=== PATIENT | female | born 1975 | race Caucasian/White ===

== ENCOUNTER 2016-04-25 13:11 | Observation (INO) | payer SELFPAY ==
[2016-04-25 14:04] VITALS: BP 130/79; PULSE 109
[2016-04-25 15:09] LABS: COMPLETE URINE MICROSCOPIC? YES; Collection Type VOID
[2016-04-25 15:33] LABS: Bacteria FEW /HPF (NEGATIVE)
[2016-04-25 15:34] LABS: Epithelial Cells PACKED /HPF (FEW)
--- NOTE | 2016-04-25 22:08 | XRAY ---
Indication: Not feeling well. Two-dimensional lobe. Ultrasound performed. Comparison: January 27, 2016. Again there is a single viable intrauterine currently in cephalic presentation. Normal four-chamber heart with heart rate 151 bpm. 2 vessel umbilical cord with normal cord insertion. Visualized head, spine, stomach, kidneys, and bladder appear unremarkable. Placenta is posterior without abruption/previa. Cervical length measures 3.1 cm. BPD measures 6.67 cm corresponding to 26 weeks 6 days. HC measures 24.48 cm corresponding to 26 weeks 4 days. AC measures 21.46 cm corresponding to 26 weeks 0 days. FL measures 4.95 cm corresponding to 26 weeks 5 days. LALITO is 13.6 cm. Impression: Again single viable intrauterine with mean gestational age 26 weeks 4 days. Normal progression in . Incidental 2 vessel umbilical cord. Comment: Preliminary report was given.
== END 2016-04-25 16:50 | disposition home or self-care (01) ==
LOC: OB 13:11
PROVIDERS: ADMIT Family Medicine; ATTEND Family Medicine
DX: Z34.82 Encounter for supervision of other normal pregnancy, second trimester (principal)
CPT/HCPCS: 76805; 80307; 81000; G0378

== ENCOUNTER 2016-08-05 15:41 | Observation (INO) | payer MEDICAID ==
[2016-08-05] MEDS ORDERED: Sodium Chloride 0.9% 1000 ML 1,000 ML IV STA (16:31)
[2016-08-05] MEDS ORDERED: Zosyn INJ 4.5 GM in D5w 100ML Mini Bag 100 ML 100 ML IV ONE (16:33)
--- NOTE | 2016-08-05 16:36 | ERPHSYRPT ---
- History of Present Illness Time Seen by Provider: 08/05/16 16:00 Source: patient Exam Limitations: clinical condition Patient Subjective Stated Complaint: left breast tenderness, h/a, fever for 24 hours. is two weeks post c/s. Triage Nursing Assessment: ambulated to room per self. skin w/d, color normal, resp easy. denies any redness to breast but is tender to touch. denies any redness or tenderness to c/s wound. no drainage from wound Physician History: PATIENT IS 2 WEEKS POST C/S, BREAST FEEDING AND COMPLAINS OF FEVER TODAY AND LEFT BREAST SORENESS WITH TENDERNESS. DENIES NECK STIFFNESS, COUGH OR URINARY SYMPTOMS. 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 International travel in last 2 weeks: No Allergies/Adverse Reactions: Sulfa (Sulfonamide Antibiotics) Allergy (Verified 08/05/16 15:51) Home Medications: Vits W-Ca,Fe,FA(<1Mg) [] 1 each PO DAILY 01/27/16 [History] Acetaminophen [Tylenol Extra Strength] 1,000 mg PO Q4H PRN PRN 04/25/16 [History ] Venlafaxine HCl [Effexor] 150 mg PO DAILY 04/25/16 [History] Hx Tetanus, Diphtheria Vaccination/Date Given: Yes (UP TO DATE) Hx Influenza Vaccination/Date Given: Yes Hx Pneumococcal Vaccination/Date Given: No - Review of Systems Constitutional: Fever, No Chills Eyes: No Symptoms Ears, Nose, & Throat: No Symptoms Respiratory: No Symptoms, No Cough, No Dyspnea Cardiac: No Symptoms, No Chest Pain, No Edema, No Syncope Abdominal/Gastrointestinal: No Symptoms, No Abdominal Pain, No Nausea, No Vomiting, No Diarrhea Genitourinary Symptoms: No Symptoms, No Dysuria Musculoskeletal: No Symptoms, No Back Pain, No Neck Pain Skin: No Symptoms, No Rash Neurological: No Dizziness, No Focal Weakness, No Sensory Changes Psychological: No Symptoms Endocrine: No Symptoms All Other Systems: Reviewed and Negative - Past Medical History Pertinent Past Medical History: Yes Neurological History: No Pertinent History ENT History: No Pertinent History Cardiac History: No Pertinent History Respiratory History: No Pertinent History Endocrine Medical History: No Pertinent History Musculoskeletal History: No Pertinent History GI Medical History: No Pertinent History History: Other Psycho-Social History: No Pertinent History Female Reproductive Disorders: No Pertinent History Other Medical History: MITRAL VALVE PROLAPSE - Past Surgical History Past Surgical History: Yes Female Surgical History: Section - Social History Smoking Status: Never smoker Exposure to second hand smoke: No Drug Use: none Patient Lives Alone: No - Female History Hx Last Menstrual Period: 10/2015 - Nursing Vital Signs Nursing Vital Signs: Initial Vital Signs Temperature 99 F Temperature Source Oral Pulse Rate 80 Respiratory Rate 18 Blood Pressure [Right Arm] 116/91 Pain Intensity 6 - Physical Exam General Appearance: no apparent distress, alert Eye Exam: PERRL/EOMI ENT Exam: normal ENT inspection, No pharyngeal erythema, No tonsillar exudate Neck Exam: normal inspection, non-tender, supple, full range of motion, No meningismus Respiratory Exam: normal breath sounds (NO WHEEZES OR RHONCHI), lungs clear, no respiratory distress Cardiovascular/Chest Exam: normal heart sounds, regular rate/rhythm, other ( TENDERNESS LEFT OUTER LEFT BREAST, NO SWELLING OR ERYTHRMA), No murmur, No edema Gastrointestinal/Abdominal Exam: soft, non tender, no distention Extremity Exam: non-tender, normal range of motion, normal inspection, normal capillary refill Neurologic Exam: alert, oriented x 3, cooperative, 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, normal mood/affect, sensation nml, No motor deficits Skin Exam: normal color, warm, dry, No rash SpO2 Interpretation: normal SpO2: 96 Oxygen Delivery: Room Air Ordered Tests: Active Orders 24 hr Category Date Time Status Up Ad Sharonda ROUTINE Activity 08/05/16 18:58 Active Admission/Status Order ROUTINE Care 08/05/16 18:57 Active Call Admit Doctor for Orders ON ADMISSION Care 08/05/16 18:58 Active Clean Catch Urine Specimen STAT Care 08/05/16 16:33 Active Code Status Order ROUTINE Care 08/05/16 18:57 Active IV Care Q6H Care 08/05/16 18:57 Active IV Insertion STAT Care 08/05/16 16:31 Active Intake and Output Q12H Care 08/05/16 18:57 Active Vital Signs Q4H Care 08/05/16 18:57 Active Regular Diet Diet 08/05/16 Breakfast Completed BLOOD CULTURE Stat Lab 08/05/16 17:00 Received BMP Stat Lab 08/05/16 16:50 Completed CBC W DIFF Stat Lab 08/05/16 16:50 Completed CULTURE, THROAT Stat Lab 08/05/16 17:00 Received Lactic Acid Stat Lab 08/05/16 16:40 Completed STREP SCREEN-BETA A Stat Lab 08/05/16 17:00 Completed UA W/ MICROSCOPIC Stat Lab 08/05/16 17:12 Completed Transfer Order Routine Transfer 08/05/16 18:56 Ordered Medication Summary Generic Name Dose Route Start Last Admin Trade Name Jonathan PRN Reason Stop Dose Admin Acetaminophen 650 mg 08/05/16 18:57 Tylenol 325 Mg PO 09/04/16 18:56 Q4H PRN PRN PAIN AND/OR FEVER Hydrocodone Bitart/Acetaminophen 1 tab 08/05/16 18:59 Moosic 5/325 Mg PO 08/10/16 18:58 QID PRN PRN PAIN Piperacillin Sod/Tazobactam Sod 3.375 gm in 100 mls @ 200 mls/hr 08/06/16 00: 00 Zosyn 3.375gm/100 Ml D5w IV 09/05/16 00:00 Q6HT CHING Sodium Chloride 1,000 mls @ 100 mls/hr 08/05/16 19:00 Sodium Chloride 0.9% 1000 Ml IV 09/04/16 18:59 .Q10H CHING Ondansetron HCl 4 mg 08/05/16 18:59 Zofran 4 Mg/2 Ml Vial IV 09/04/16 18:58 Q4H PRN PRN NAUSEA Discontinued Medications Generic Name Dose Route Start Last Admin Trade Name Jonathan PRN Reason Stop Dose Admin Sodium Chloride 1,000 mls @ 999 mls/hr 08/05/16 16:31 08/05/16 17:12 Sodium Chloride 0.9% 1000 Ml IV 08/05/16 17:31 999 mls/hr .Q1H1M STA Administration Piperacillin Sod/Tazobactam 100 mls @ 100 mls/hr 08/05/16 16:33 08/05/16 17: 12 Sod 4.5 gm/ Dextrose IV 08/05/16 17:32 100 mls/hr STAT ONE Administration Sodium Chloride Confirm 08/05/16 16:49 Sodium Chloride 0.9% 1000 Ml Administered 08/05/16 16:50 Dose 1,000 mls @ ud .ROUTE .STK-MED ONE Dextrose Confirm 08/05/16 16:49 D5w 100ml Mini Bag 100 Ml Administered 08/05/16 16:50 Dose 100 mls @ ud IV .STK-MED ONE Piperacillin Sod/Tazobactam Sod Confirm 08/05/16 16:49 Zosyn Inj Administered 08/05/16 16:50 Dose 4.5 gm IV .STK-MED ONE Piperacillin Sod/Tazobactam Sod Confirm 08/05/16 17:01 Zosyn Inj Administered 08/05/16 17:02 Dose 4.5 gm IV .STK-MED ONE Lab/Rad Data: Laboratory Result Diagrams 08/05/16 16:50 08/05/16 16:50 Laboratory Results 08/05/16 08/05/16 08/05/16 Range/Units 17:12 17:00 16:50 WBC (4.0-10.5) K/mm3 RBC (4.1-5.4) M/mm3 Hgb (12.0-16.0) gm/dl Hct (35-47) % MCV (78-100) fl MCH (26-32) pg MCHC (32-36) g/dl RDW (11.5-14.0) % Plt Count (150-450) K/mm3 MPV (6-9.5) fl Gran % (36.0-66.0) % Lymphocytes % (24.0-44.0) % Monocytes % (0.0-12.0) % Eosinophils % (0.00-5.0) % Basophils % (0.0-0.4) % Basophils # (0-0.4) Sodium 140 (136-145) mEq/L Potassium 3.7 (3.5-5.1) mEq/L Chloride 104 (98-107) mEq/L Carbon Dioxide 23.2 (21-32) mEq/L Anion Gap 16.3 H (5-15) MEQ/L BUN 20 (9-20) mg/dL Creatinine 0.82 (0.55-1.30) mg/dl Estimated GFR > 60 ML/MIN Glucose 87 (70-110) MG/DL Lactic Acid (0.4-2.0) Calcium 9.1 (8.5-10.1) mg/dL Ur Collection Type CLEAN CATCH Urine Color YELLOW (YELLOW) Urine Appearance SLIGHTLY CLOUDY (CLEAR) Urine pH 5.0 (5-6) Ur Specific [place] 1.010 (1.005-1.025) Urine Protein NEGATIVE (Negative) Urine Ketones NEGATIVE (NEGATIVE) Urine Blood 250 (0-5) Aamir/ul Urine Nitrite NEGATIVE (NEGATIVE) Urine Bilirubin NEGATIVE (NEGATIVE) Urine Urobilinogen NORMAL (0-1) mg/dL Ur Leukocyte Esterase 2+ (NEGATIVE) Urine Microscopic RBC 5-10 (0-2) /HPF Urine Microscopic WBC 25-50 (0-5) /HPF Ur Epithelial Cells FEW (FEW) /HPF Urine Bacteria FEW (NEGATIVE) /HPF Urine Glucose NEGATIVE (NEGATIVE) mg/dL Streptococcus Screen NEGATIVE (Negative) Specimen Received 08/05/16:1720 08/05/16 08/05/16 Range/Units 16:50 16:40 WBC 14.6 H (4.0-10.5) K/mm3 RBC 4.47 (4.1-5.4) M/mm3 Hgb 12.7 (12.0-16.0) gm/dl Hct 39.2 (35-47) % MCV 87.7 (78-100) fl MCH 28.4 (26-32) pg MCHC 32.4 (32-36) g/dl RDW 13.2 (11.5-14.0) % Plt Count 488 H (150-450) K/mm3 MPV 9.4 (6-9.5) fl Gran % 81.7 H (36.0-66.0) % Lymphocytes % 12.0 L (24.0-44.0) % Monocytes % 5.2 (0.0-12.0) % Eosinophils % 1.0 (0.00-5.0) % Basophils % 0.1 (0.0-0.4) % Basophils # 0.02 (0-0.4) Sodium (136-145) mEq/L Potassium (3.5-5.1) mEq/L Chloride (98-107) mEq/L Carbon Dioxide (21-32) mEq/L Anion Gap (5-15) MEQ/L BUN (9-20) mg/dL Creatinine (0.55-1.30) mg/dl Estimated GFR ML/MIN Glucose (70-110) MG/DL Lactic Acid 1.1 (0.4-2.0) Calcium (8.5-10.1) mg/dL Ur Collection Type Urine Color (YELLOW) Urine Appearance (CLEAR) Urine pH (5-6) Ur Specific [place] (1.005-1.025) Urine Protein (Negative) Urine Ketones (NEGATIVE) Urine Blood (0-5) Aamir/ul Urine Nitrite (NEGATIVE) Urine Bilirubin (NEGATIVE) Urine Urobilinogen (0-1) mg/dL Ur Leukocyte Esterase (NEGATIVE) Urine Microscopic RBC (0-2) /HPF Urine Microscopic WBC (0-5) /HPF Ur Epithelial Cells (FEW) /HPF Urine Bacteria (NEGATIVE) /HPF Urine Glucose (NEGATIVE) mg/dL Streptococcus Screen (Negative) Specimen Received - Progress Progress Note: 08/05/16 19:35 PATIENT GIVEN IV NORMAL SALINE 2 LITERS, ZOSYN 4.5GM AFTER BLOOD CULTURE OBTAINED. Discussed with Dr.: Bhakta (DISCUSSED WITH DR BHAKTA AT 1900 FOR ADMISSION) - Departure Time of Disposition: 19:15 Departure Disposition: Home (1899), Observation Clinical Impression: EARLY MASTITIS, URINARY TRACT INFECTION Condition: Stable Critical Care Time: No
[2016-08-05] MEDS ORDERED: Sodium Chloride 0.9% 1000 ML 1,000 ML ONE (16:49)
[2016-08-05] MEDS ORDERED: D5w 100ML Mini Bag 100 ML 0 ML IV ONE (16:49)
[2016-08-05] MEDS ORDERED: Zosyn INJ IV ONE ×2 (16:49→17:01)
[2016-08-05 17:21] LABS: BASOPHIL % 0.1 % (0.0-0.4); Granulocytes % 81.7 % (36.0-66.0); Mean Cell Volume 87.7 fl (78-100); Mean Corpuscular Hemoglobin 28.4 pg (26-32); Mean Platelet Volume 9.4 fl (6-9.5); Monocytes % 5.2 % (0.0-12.0); Platelet Count 488 K/mm3 (150-450); Red Blood Count 4.47 M/mm3 (4.1-5.4); Red Cell Distribution Width 13.2 % (11.5-14.0); White Blood Count 14.6 K/mm3 (4.0-10.5)
[2016-08-05 17:39] LABS: ANION GAP 16.3 MEQ/L (5-15); BLOOD UREA NITROGEN 20 mg/dL (9-20); CHLORIDE 104 mEq/L (98-107); Carbon Dioxide 23.2 mEq/L (21-32); Glucose 87 MG/DL (70-110); Potassium 3.7 mEq/L (3.5-5.1); SODIUM 140 mEq/L (136-145)
[2016-08-05 17:53] LABS: Bacteria FEW /HPF (NEGATIVE); Bilirubin NEGATIVE (NEGATIVE); Blood 250 Ery/ul (0-5); COMPLETE URINE MICROSCOPIC? YES; Collection Type CLEAN CATCH; Epithelial Cells FEW /HPF (FEW); Glucose NEGATIVE (NEGATIVE); Leukocyte Esterase 2+ (NEGATIVE); WBC 25-50 /HPF (0-5)
[2016-08-05] MEDS ORDERED: Zofran 4 MG/2 ML VIAL IV PRN (18:59)
[2016-08-05] MEDS ORDERED: NORCO 5/325 MG PO PRN (18:59)
[2016-08-05] MEDS ORDERED: Sodium Chloride 0.9% 1000 ML 1,000 ML IV SCH (19:00)
[2016-08-05] MEDS: TYLENOL 325 MG PO PRN (21:28)
[2016-08-05] MEDS: Unasyn 3GM / NaCl 100ML 3 GM/100 ML IVPB IV SCH (23:56)
[2016-08-06] MEDS ORDERED: Zosyn 3.375GM/100 Ml D5W 3.375 GM/100 ML IVPB IV SCH
[2016-08-06] MEDS: Unasyn 3GM / NaCl 100ML 3 GM/100 ML IVPB IV SCH (05:36)
[2016-08-06] MEDS: TYLENOL 325 MG PO PRN (06:37)
--- NOTE | 2016-08-06 08:47 | PCM.SSS ---
History of Present Illness - Chief Complaint Chief Complaint: mastitis and UTI History of Present Illness: is a 41 year old female who is 2 weeks status post section delivery, she came to ER with left breast pain and fever, was found to have an area of induration in the upper lateral left breast, no warmth or erythmea present. She denies urinary symptoms, she is feeling dramatically better after treatment overnight. Has had no fever, has no pain at this time. - Review of Systems Constitutional: Fever, Chills Respiratory: No Cough, No Short Of Breath Cardiac: No Chest Pain, No Edema, No Syncope Abdominal/Gastrointestinal: No Abdominal Pain, No Nausea, No Vomiting, No Diarrhea All Other Systems: Reviewed and Negative Medications & Allergies Home Medications: Home Medication List Vits W-Ca,Fe,FA(<1Mg) [] 1 each PO DAILY 01/27/16 [History Confirmed 08/05/16] Acetaminophen [Tylenol Extra Strength] 1,000 mg PO Q4H PRN PRN 04/25/16 [ History Confirmed 08/05/16] Venlafaxine HCl [Effexor] 150 mg PO DAILY 04/25/16 [History Confirmed 08/05/16] Amox Tr/Potass Clav. 500 mg [Augmentin 500-125 Tablet] 500 mg PO TID #21 tablet 08/06/16 [Rx] Allergies/Adverse Reactions: Allergies Allergy/AdvReac Type Severity Reaction Status Date / Time Sulfa (Sulfonamide Allergy Verified 08/05/16 15:51 Antibiotics) - Past Medical History Past Medical History: Yes Neurological History: No Pertinent History ENT History: No Pertinent History Cardiac History: Deep Vein Thrombosis, Other Respiratory History: No Pertinent History Endocrine Medical History: No Pertinent History Musculoskelatal History: No Pertinent History GI Medical History: No Pertinent History History: Other Pyscho-Social History: No Pertinent History Reproductive Disorders: No Pertinent History Comment: MITRAL VALVE PROLAPSE - Female History Hx Last Menstrual Period: 10/10/2015 Are you now?: No - Past Surgical History Past Surgical History: Yes Neuro Surgical History: No Pertinent History Cardiac History: No Pertinent History Respiratory Surgery: No Pertinent History GI Surgical History: No Pertinent History Genitourinary Surgical Hx: No Pertinent History Musculskeletal Surgical Hx: No Pertinent History Female Surgical History: Section - Social History Smoking Status: Never smoker Exposure to second hand smoke: No Alcohol: None Drug Use: none - Physical Exam Vital Signs: Vital Signs - 24 hr Temp Pulse Resp BP Pulse Ox 08/06/16 05:50 98.2 F 75 18 136/70 08/06/16 04:00 98.7 F 79 18 128/68 99 08/05/16 23:41 98.7 F 79 18 128/68 99 08/05/16 20:34 98.4 F 73 16 123/79 98 08/05/16 20:00 98.4 F 73 16 123/79 98 08/05/16 19:38 96 08/05/16 18:02 80 08/05/16 17:13 88 18 97 08/05/16 15:45 99 F 121 H 16 116/91 96 General Appearance: no apparent distress, alert Respiratory Exam: normal breath sounds, lungs clear, No respiratory distress Cardiovascular Exam: regular rate/rhythm, normal heart sounds, normal peripheral pulses Gastrointestinal/Abdomen Exam: soft, normal bowel sounds, No tenderness, No mass Skin Exam: other (no erythmea, no fluctuance or induration to left breast. nontender) Assessment/Plan (1) Mastitis Current Visit: Yes Status: Acute Assessment & Plan: improved rapidly with Unasyn, patient is nontoxic, afebrile and nothing on physical exam. will d/c with augmentin and await urine culture and modify tx if needed. f/u 1 week Code(s): N61.0 - MASTITIS WITHOUT ABSCESS (2) UTI (urinary tract infection) Current Visit: Yes Status: Acute Code(s): N39.0 - URINARY TRACT INFECTION, SITE NOT SPECIFIED Hospital Summary - Vitals & Intake/Output Vital Signs: Vital Signs Temperature 98.2 F 08/06/16 05:50 Pulse Rate 75 08/06/16 05:50 Respiratory Rate 18 08/06/16 05:50 Blood Pressure 136/70 08/06/16 05:50 O2 Sat by Pulse Oximetry 99 08/06/16 04:00 Intake & Output: Intake & Output 08/03/16 08/04/16 08/05/16 08/06/16 11:59 11:59 11:59 11:59 Intake Total 1579 Output Total 700 Balance 879 Weight 78.018 kg - Lab Result Diagrams: 08/05/16 16:50 08/05/16 16:50 - Discharge Disposition: Home, Self-Care Condition: Stable Prescriptions: New Amox Tr/Potass Clav. 500 mg [Augmentin 500-125 Tablet] 500 mg PO TID # 21 tablet Continue Vits W-Ca,Fe,FA(<1Mg) [] 1 each PO DAILY Venlafaxine HCl [Effexor] 150 mg PO DAILY Acetaminophen [Tylenol Extra Strength] 1,000 mg PO Q4H PRN PRN PRN Reason: Pain Additional Instructions: use warm compress to left breast. keep breast emptied via or pumping frequently. return or call Dr Bhakta for high fever, redness, worsening pain in the left breast or other concerns. Follow up with: DEANNA BHAKTA MD [Primary Care Provider] -
[2016-08-06 09:23] VITALS: BP 147/69; PULSE 81; O2SAT 95
[2016-08-06] MEDS ORDERED: Effexor XR 75 MG PO SCH (10:00)
[2016-08-06] MEDS ORDERED: NON-FORMULARY ITEM (Venlafaxine Hcl [Effexor] 150 MG) PO SCH (10:00)
[2016-08-06] MEDS ORDERED: NON-FORMULARY ITEM (Prenatal Vits W-Ca,Fe,Fa(<1mg) [Prenatal] 1 EACH) PO SCH (10:00)
[2016-08-06] MEDS ORDERED: THERAGRAN MULTIVITAMIN PO SCH (10:00)
== END 2016-08-06 10:10 | disposition home or self-care (01) ==
LOC: ED 15:41 → MED SURG 19:43
PROVIDERS: ADMIT Family Medicine; ATTEND Family Medicine
DX: O91.22 Nonpurulent mastitis associated with the puerperium (principal); O86.4 Pyrexia of unknown origin following delivery; O86.20 Urinary tract infection following delivery, unspecified; Z86.718 Personal history of other venous thrombosis and embolism; I34.1 Nonrheumatic mitral (valve) prolapse
CPT/HCPCS: 36000; 36415; 80048; 81000; 83605; 85025; 87040; 87070; 87430; 96360; 96365; 99285; G0378; J0295; J2543; A9270-GY